=== PATIENT | female | born 1965 | race Caucasian/White ===

== ENCOUNTER 2016-08-24 12:11 | Emergency (ER) | payer MEDICAID, OTHER ==
--- NOTE | 2016-08-24 14:42 | ERNOTE ---
Lower Extremity HPI - Narrative Date of Service: 08/24/16 - General Lower Extremities Pain: knee: right - no gross abnormality noted, ankle: right - no gross abnormality noted Time Seen by Provider: 08/24/16 14:01 Source: patient Exam Limitations: no limitations - Immun/Allergies/Home Medications Immunizations: IMMUNIZATION HX Immunizations Up to Date Yes History of Influenza Vaccine No Hx Pneumococcal Vaccination No Allergies/Adverse Reactions: Allergies Allergy/AdvReac Type Severity Reaction Status Date / Time formaldehyde Allergy Mild Hives Verified 08/24/16 12:59 codeine [Codeine] AdvReac Mild Headache Verified 08/24/16 12:59 lamotrigine AdvReac Mild rash Verified 08/24/16 12:59 nabumetone AdvReac Mild Headache Verified 08/24/16 12:59 prochlorperazine edisylate AdvReac Mild lock jaw Verified 08/24/16 12:59 [From Compazine] prochlorperazine maleate AdvReac Mild lock jaw Verified 08/24/16 12:59 [From Compazine] Home Medications: HOME MEDICATIONS Venlafaxine HCl 75 mg PO HS PRN 03/29/14 [Last Taken Unknown] metFORMIN HCL [Glucophage] 1,000 mg PO BIDWM 03/29/14 [Last Taken Unknown] Aspirin [Aspirin Enteric Coated] 325 mg PO DAILY 05/04/14 [Last Taken Unknown] ALPRAZolam [Xanax] 0.25 mg PO TID PRN 10/09/14 [Last Taken Unknown] traMADol HCL [Ultram] 50 mg PO DAILY 01/01/15 [Last Taken Unknown] Gabapentin [Neurontin] 300 mg PO HS 01/06/16 [Last Taken Unknown] Blood Sugar Diagnostic, Chely [Accu-Chek Compact] 1 each MC BID 01/22/16 [Last Taken Unknown] Naproxen [Naprosyn] 500 mg PO BID PRN #20 tablet 05/02/16 [Last Taken Unknown] Escitalopram Oxalate [Lexapro] 10 mg PO DAILY 06/02/16 [Last Taken Unknown] predniSONE [Prednisone] 2 tab PO DAILY 06/02/16 [Last Taken Unknown] - History of Present Illness Narrative: This is a 51 year old female with a history of right knee surgery due to torn meniscus and pak's cyst [place] [address] Enriquez. Patient states she has appointment Thursday with him. Patient states she began to experience right knee and right ankle pain beginning last week which has been getting progressively worse. Denies trauma/fall/injury yet states she noticed the pain and it has been getting progressively worse. States pain is constant and she can still ambulate. No obvious trauma or injury noted Date (Duration): 08/18/16 Occurred: last week Location of Incident: other - no actual injury just progression of pain Method of Injury: Reports: other - denies injury or trauma, denies fall Reason for Fall: Reports: other - did not fall Loss of Consciousness: Reports: no loss of consciousness Modifying Factors - (Improves): Reports: rest Modifying Factors - (Worsens): Reports: movement Associated Symptoms: Denies: unable to bear weight, snapping, popping sensation , dizzy/light headedness, headache, weakness, sensory loss, chest pain, vomiting /diarrhea, bowel/bladder problems Other Injuries: Reports: none Subsequent Symptoms: Denies: sensory loss, numbness, motor loss, bowel/bladder problem Review of Systems - Review of Systems Constitutional: Present: no symptoms reported. Absent: recent illness, fever, chills, diaphoresis, weakness, fatigue, malaise, weight loss EYE: Present: no symptoms reported ENT: Present: no symptoms reported Respiratory: Present: no symptoms reported. Absent: shortness of breath, cough , orthopnea Cardiology: Present: no symptoms reported. Absent: chest pain, palpitations, syncope Gastrointestinal/Abdominal: Present: no symptoms reported. Absent: nausea, vomiting, diarrhea, abdominal pain Genitourinary: Present: no symptoms reported Musculoskeletal: Present: other - complains of pain right lateral area knee and ankle. Absent: back pain, muscle pain, muscle stiffness Neurological: Present: no symptoms reported - Patient's Past Medical History Patient History - Medical: Anxiety, Diabetes Type 2, Depression, Fibromyalgia, GERD Patient History - Cardiac/Respiratory: No pertinent hx Patient History - Cancer: No Hx of Cancer Patient History - Surgical Procedures: Appendectomy, Cholecystectomy, Hysterectomy, T & A - Family History Mother Family History - Medical: Diabetes Type 2 Family History - Cardiac/Respiratory: Coronary Heart Disease, Myocardial Infarction Father Family History - Medical: Diabetes Type 2 Family History - Cardiac/Respiratory: Coronary Heart Disease, CHF, COPD Brother Family History - Medical: History Unknown, Diabetes Type 2 Family History - Cardiac/Respiratory: History Unknown Sister Family History - Medical: History Unknown Family History - Cardiac/Respiratory: History Unknown - Social History Living Situations: alone Does anyone smoke in the home?: No Smoking Status: Never smoker Alcohol Use: occasionally Drug Use: none Physical Exam - Physical Exam General Appearance: Present: wd/wn, alert, no apparent distress, cheerful Eye Exam: Normal inspection: bilateral Ears, Nose, Throat: Present: hearing grossly normal. Absent: dry mucous membranes Neck: Present: normal inspection Respiratory: Present: no respiratory distress, normal breath sounds, no accessory muscle use, chest nontender, lungs clear. Absent: chest tenderness, respiratory distress, accessory muscle use Cardiovascular/Chest: Present: regular rate, rhythm, no murmur, normal peripheral pulses Peripheral Pulses: N=norm/S=strong/W=weak/B=bound/A=absent: Radial (R): Strong, Radial (L): Strong, Dorsalis-pedis (R): Strong, Dorsalis-pedis (L): Strong Gastrointestinal/Abdominal: Present: normal bowel sounds, nontender, nondistended, soft Extremity Exam: Present: normal inspection, no edema, normal range of motion Neurological Exam: Present: alert, oriented, normal mood/affect, no motor/ sensory deficits Skin Exam: Present: normal color, warm/dry ED Progress - Vital Signs Patient's Vital Signs:: I have reviewed the patient's vital signs. Vital Signs: Vital Signs 08/24/16 12:54 Temperature 36.3 C L Pulse Rate 101 H Respiratory 16 Rate Blood Pressure 103/80 O2 Sat by Pulse 96 Oximetry - X-Ray X-Ray #1 X-Ray: knee Interpretation: Reviewed by me X-ray Comments: Findings: Normal bony mineralizations and alignment. No fracture or dislocation. No productive or erosive changes are seen. No lytic or blastic changes. No soft tissue abnormality. IMPRESSION: NO ACUTE OSSEOUS ABNORMALITY Electronically signed by Enoc Carranza M.D.. - Progress/Reassessment Chief Complaint: Lower Extremity Pain/ Injury Progress:: Repeat exam at discharge Progress Note-Subjective: 08/24/16 15:23 patient agrees to muna wrapping both knee and ankle Departure Clinical Impression: Knee pain, acute Qualifiers: Laterality: right Qualified Code(s): M25.561 - Pain in right knee Ankle pain, right Qualifiers: Chronicity: acute Qualified Code(s): M25.571 - Pain in right ankle and joints of right foot - Departure Disposition: Home Follow Up Needed Condition: Good Instructions: Knee Pain, [id number], Ankle Sprain, RICE for Routine Care of Injuries, [id number] Additional Instructions: Keep appointment with Dr Ospina's on Thursday. Keep muna wrap on to help decrease movement and reduce pain. Elevate, rest and ice right knee and ankle Referrals: Jhon Martinez DO [Primary Care Provider] - Gianni Enriquez MD [Staff Physician] -
[2016-08-24 15:34] VITALS: BP 110/68
== END 2016-08-24 15:35 | disposition home or self-care (01) ==
LOC: ER 12:11
DX: M25.561 Pain in right knee (principal); M25.571 Pain in right ankle and joints of right foot

== ENCOUNTER 2016-09-14 17:04 | Emergency (ER) | payer MEDICAID ==
--- NOTE | 2016-09-14 17:46 | ERNOTE ---
Medical Problem HPI - Narrative Date of Service: 09/14/16 - General Chief Complaint: General Assessment Time Seen by Provider: 09/14/16 17:29 Source: patient Exam Limitations: no limitations - Immun/Allergies/Home Medications Immunizations: IMMUNIZATION HX Immunizations Up to Date Yes History of Influenza Vaccine Yes Hx Pneumococcal Vaccination No Allergies/Adverse Reactions: Allergies formaldehyde Allergy (Mild, Verified 08/24/16 12:59) Hives codeine [Codeine] Adverse Reaction (Mild, Verified 08/24/16 12:59) Headache lamotrigine Adverse Reaction (Mild, Verified 08/24/16 12:59) rash nabumetone Adverse Reaction (Mild, Verified 08/24/16 12:59) Headache prochlorperazine edisylate [From Compazine] Adverse Reaction (Mild, Verified 12:59) lock jaw prochlorperazine maleate [From Compazine] Adverse Reaction (Mild, Verified 08/24 12:59) lock jaw Home Medications: HOME MEDICATIONS Venlafaxine HCl 75 mg PO HS PRN 03/29/14 [Last Taken Unknown] metFORMIN HCL [Glucophage] 1,000 mg PO BIDWM 03/29/14 [Last Taken Unknown] Aspirin [Aspirin Enteric Coated] 325 mg PO DAILY 05/04/14 [Last Taken Unknown] ALPRAZolam [Xanax] 0.25 mg PO TID PRN 10/09/14 [Last Taken Unknown] traMADol HCL [Ultram] 50 mg PO DAILY 01/01/15 [Last Taken Unknown] Gabapentin [Neurontin] 300 mg PO HS 01/06/16 [Last Taken Unknown] Blood Sugar Diagnostic, Drum [Accu-Chek Compact] 1 each MC BID 01/22/16 [Last Taken Unknown] Naproxen [Naprosyn] 500 mg PO BID PRN #20 tablet 05/02/16 [Last Taken Unknown] Escitalopram Oxalate [Lexapro] 10 mg PO DAILY 06/02/16 [Last Taken Unknown] Hydrocortisone [Hydrocortisone 2.5% Cream] 1 appl TP BID PRN #120 gm 09/14/16 [ Last Taken Unknown] Hydrophilic Ointment [Aquaphilic Ointment] 1 appl TP HS #1 jar 09/14/16 [Last Taken Unknown] - History of Present History Narrative: Sensitive skin for many years. Hands especially cracked and itchy in the last year. Timing: getting worse Severity: mild, moderate Modifying Factors - (Improves): Present: other - nothing Modifying Factors - (Worsens): Present: other - anything irritating. Review of Systems - Review of Systems Constitutional: Present: no symptoms reported EYE: Present: no symptoms reported ENT: Present: no symptoms reported Respiratory: Present: no symptoms reported Cardiology: Present: no symptoms reported Gastrointestinal/Abdominal: Present: no symptoms reported Genitourinary: Present: no symptoms reported Musculoskeletal: Present: no symptoms reported Skin: Present: See HPI Neurological: Present: no symptoms reported Endocrine: Present: no symptoms reported Hematologic/Lymphatic: Present: no symptoms reported Psych: Present: no symptoms reported All Other Systems: All systems neg except as marked - Patient's Past Medical History Patient History - Medical: Anxiety, Diabetes Type 2, Depression, Fibromyalgia, GERD Patient History - Cardiac/Respiratory: No pertinent hx Patient History - Cancer: No Hx of Cancer Patient History - Surgical Procedures: Appendectomy, Cholecystectomy, Hysterectomy, T & A Patient History - Other: None - Family History Mother Family History - Medical: Diabetes Type 2 Family History - Cardiac/Respiratory: Coronary Heart Disease, Myocardial Infarction Father Family History - Medical: Diabetes Type 2 Family History - Cardiac/Respiratory: Coronary Heart Disease, CHF, COPD Brother Family History - Medical: History Unknown, Diabetes Type 2 Family History - Cardiac/Respiratory: History Unknown Sister Family History - Medical: History Unknown Family History - Cardiac/Respiratory: History Unknown - Social History Living Situations: alone Abuse History: No History of abuse Psych History: No pertinent hx Does anyone smoke in the home?: No Smoking Status: Never smoker Alcohol Use: occasionally Drug Use: none - Immunizations Immunizations Up to Date: Yes Hx Pneumococcal Vaccination: No History of Influenza Vaccine: Yes Physical Exam - Physical Exam General Appearance: Present: wd/wn, alert, no apparent distress Eye Exam: Normal inspection: bilateral, PERRL: bilateral, EOMI: bilateral Ears, Nose, Throat: Present: normal ENT inspection, hearing grossly normal Neck: Present: normal inspection Respiratory: Present: no respiratory distress Cardiovascular/Chest: Present: regular rate, rhythm Extremity Exam: Present: other - skin on hands mildly dry and cracked Neurological Exam: Present: alert, oriented, normal mood/affect Skin Exam: Present: normal color, warm/dry Lymphatic Exam: Present: no adenopathy ED Progress - Vital Signs Patient's Vital Signs:: I have reviewed the patient's vital signs. Vital Signs: Vital Signs 09/14/16 17:13 Temperature 36.3 C L Pulse Rate 90 Respiratory 14 Rate Blood Pressure 136/82 O2 Sat by Pulse 98 Oximetry - Progress/Reassessment Chief Complaint: General Assessment Departure - Departure Clinical Impression: Eczema Qualifiers: Eczema type: intrinsic Qualified Code(s): L20.84 - Intrinsic (allergic) eczema Disposition: Home self-care Condition: Good Instructions: Eczema Additional Instructions: Followup in the office in the next month or so. Use only Dove soap to wash your hands. Whenever possible, use waterproof gloves when your hands have to be in water. Every night, put a thick layer of Aquaphilic ointment on both hands, then put on white cotton gloves, which you will wear all night every night. Use the Hydrocortisone cream twice daily NEEDED for itching. Referrals: Jhon Martinez DO [Primary Care Provider] - Prescriptions: Hydrocortisone [Hydrocortisone 2.5% Cream] 1 appl TP BID PRN #120 gm PRN Reason: itching Hydrophilic Ointment [Aquaphilic Ointment] 1 appl TP HS #1 jar
[2016-09-14 18:53] VITALS: BP 136/85
== END 2016-09-14 17:55 | disposition home or self-care (01) ==
LOC: ER 17:04
DX: L20.84 Intrinsic (allergic) eczema (principal)

== ENCOUNTER 2016-10-11 20:52 | Emergency (ER) | payer MEDICAID ==
[2016-10-11 21:02] VITALS: BP 126/91
--- NOTE | 2016-10-11 21:06 | ERNOTE ---
Lower Extremity HPI - Narrative Date of Service: 10/11/16 - General Lower Extremities Pain: knee: right, ankle: right Time Seen by Provider: 10/11/16 20:58 Source: patient, family Exam Limitations: no limitations - Immun/Allergies/Home Medications Immunizations: IMMUNIZATION HX Immunizations Up to Date Yes History of Influenza Vaccine Yes Hx Pneumococcal Vaccination No Allergies/Adverse Reactions: Allergies Allergy/AdvReac Type Severity Reaction Status Date / Time formaldehyde Allergy Mild Hives Verified 10/11/16 21:02 codeine [Codeine] AdvReac Mild Headache Verified 10/11/16 21:02 lamotrigine AdvReac Mild rash Verified 10/11/16 21:02 nabumetone AdvReac Mild Headache Verified 10/11/16 21:02 prochlorperazine edisylate AdvReac Mild lock jaw Verified 10/11/16 21:02 [From Compazine] prochlorperazine maleate AdvReac Mild lock jaw Verified 10/11/16 21:02 [From Compazine] Home Medications: HOME MEDICATIONS Venlafaxine HCl 75 mg PO HS PRN 03/29/14 [Last Taken Unknown] metFORMIN HCL [Glucophage] 1,000 mg PO BIDWM 03/29/14 [Last Taken Unknown] Aspirin [Aspirin Enteric Coated] 325 mg PO DAILY 05/04/14 [Last Taken Unknown] ALPRAZolam [Xanax] 0.25 mg PO TID PRN 10/09/14 [Last Taken Unknown] traMADol HCL [Ultram] 50 mg PO DAILY 01/01/15 [Last Taken Unknown] Gabapentin [Neurontin] 300 mg PO HS 01/06/16 [Last Taken Unknown] Blood Sugar Diagnostic, Drum [Accu-Chek Compact] 1 each MC BID 01/22/16 [Last Taken Unknown] Naproxen [Naprosyn] 500 mg PO BID PRN #20 tablet 05/02/16 [Last Taken Unknown] Escitalopram Oxalate [Lexapro] 10 mg PO DAILY 06/02/16 [Last Taken Unknown] Hydrocortisone [Hydrocortisone 2.5% Cream] 1 appl TP BID PRN #120 gm 09/14/16 [ Last Taken Unknown] Hydrophilic Ointment [Aquaphilic Ointment] 1 appl TP HS #1 jar 09/14/16 [Last Taken Unknown] oxyCODONE HCL [Oxycontin] 15 mg PO Q6H PRN 10/11/16 [Last Taken 10/11/16 15:00] - History of Present Illness Narrative: PT C/O OF AGGRAVATION OF HER CHRONIC RIGHT KNEE AND ANKLE PROBLEMS. IS FOLLOWED BY ORTHOPEDIST WHOM SHE JUST SAW 2 WEEKS AGO AND HAS APPOINTMENT FOR RECHECK IN A FEW WEEKS BUT SAYS HER KNEE IS STILL BOTHERING HER . WHEN SEEN BY ORTHO SHE ALSO C/O RIGHT ANKLE PROBLEMS THAT HER DR DX'D POSSIBLE "HIGH ANKLE SPRAIN". SHE HAS NO NEW INJURY. SHE SAYS SHE FEELS POPPING IN HER RIGHT KNEE TONIGHT. SHE IS USING CRUTCHES. SHE HAS KNEE BRACE FROM PRIOR RIGHT KNEE PROBLEMS BUT IS NOT USING IT. SHE IS ALREADY ON OXYCODONE AND NAPROXEN. SHE IS WONDERING IF THERE ARE MORE PAIN RELIEVERS SHE COULD USE. Occurred: other - CHRONIC PROBLEM . NO ACUTE INJURY Prior Treament: Reports: recently seen, treated by physician, similar symptoms before Review of Systems - Review of Systems Constitutional: Present: See HPI Respiratory: Present: no symptoms reported Cardiology: Present: no symptoms reported Gastrointestinal/Abdominal: Present: no symptoms reported Genitourinary: Present: no symptoms reported Musculoskeletal: Present: See HPI, joint pain. Absent: joint swelling Skin: Present: no symptoms reported Psych: Present: no symptoms reported All Other Systems: All systems neg except as marked - Patient's Past Medical History Patient History - Medical: Anxiety, Diabetes Type 2, Depression, Fibromyalgia, GERD, Obesity - BMI = 34.5, Other - OSTEOARTHRITS WITH HX OF CHRONIC JOINT PAIN COMPLAINTS. Patient History - Cardiac/Respiratory: No pertinent hx Patient History - Cancer: No Hx of Cancer Patient History - Surgical Procedures: Appendectomy, Cholecystectomy, Hysterectomy, T & A, Orthopedic Patient History - Other: None - Family History Mother Family History - Medical: Diabetes Type 2 Family History - Cardiac/Respiratory: Coronary Heart Disease, Myocardial Infarction Father Family History - Medical: Diabetes Type 2 Family History - Cardiac/Respiratory: Coronary Heart Disease, CHF, COPD Brother Family History - Medical: History Unknown, Diabetes Type 2 Family History - Cardiac/Respiratory: History Unknown Sister Family History - Medical: History Unknown Family History - Cardiac/Respiratory: History Unknown - Social History Living Situations: home Abuse History: No History of abuse Psych History: Hx of Anxiety, Hx of Depression Does anyone smoke in the home?: No Smoking Status: Never smoker Alcohol Use: occasionally Drug Use: none - Immunizations Immunizations Up to Date: Yes Hx Pneumococcal Vaccination: No History of Influenza Vaccine: Yes Physical Exam - Physical Exam General Appearance: Present: wd/wn, alert Peripheral Pulses: N=norm/S=strong/W=weak/B=bound/A=absent: Dorsalis-pedis (R): Normal Extremity Exam: Present: normal inspection, normal range of motion, no edema, bony tenderness - SHE C/O PAIN IN THE RIGHT KNEE JOINT AREA WHICH IS NO WELL LOCALIZED. THE HAS NO SIGN OF ANY RIGHT KNEE OR ANKLE JOINT INSTABILITY. THERE IS NO POPPING OF R. KNEE NOTED ON EXAM . THE R. KNEE , AND L. KNEE, IS NOT SWOLLEN OR RED OR HOT TO TOUCH. NO EFFUSION NOTED. R. ANKLE ALSO WITHOUT SWELLING OR DEFORMITY . NORMAL DORSALIS PEDIS PULSE ON RIGHT WITH NORMAL DISTAL SENSATION AND REFILL. . Absent: calf tenderness, joint redness, joint swelling, extremity edema ED Progress - Vital Signs Vital Signs: Vital Signs 10/11/16 20:55 Temperature 36.6 C Pulse Rate 104 H Respiratory 18 Rate Blood Pressure 126/91 O2 Sat by Pulse 94 Oximetry - Progress/Reassessment Chief Complaint: Lower Extremity Pain/ Injury Departure Clinical Impression: Knee clicking, Osteoarthritis (arthritis due to wear and tear of joints) - Departure Disposition: Home Follow Up Needed Condition: Good Instructions: Knee Pain, Joint Pain, Nmkh-by-Ymav, Osteoarthritis Additional Instructions: CONTINUE FOLLOW UP WITH YOUR ORTHOPEDIST. TRIAL OF 20 MINS OF ICE FOLLOWED BY 20 MINS OF HEAT EVERY 4 HOURS. CONSIDER USE OF PREFORM OR BIO FREEZE TO SORE JOINT. USE YOUR KNEE BRACE WHEN UP AND AROUND. PARTICIPATE IN REGULAR GENTLE ACTIVITY , AVOIDING THINGS THAT AGGRAVATE THE PAIN. CONTINUE YOUR MEDS BEFORE. Referrals: Darron Horta MD [Primary Care Provider] -
--- OUTSIDE RECORDS SUMMARY | 2016-10-11 21:25 | XMS REPORT | Continuity of Care Document ---
:1965 Author Organization [facility] ([facility]) Address [address] [place] [address] Phone [phone] Care Team Providers Name Role Phone Nicolette Lloyd Primary Care Provider [phone] Source Comments This disclosure is being made pursuant to the Care Everywhere program, applicable federal and state laws, and may not contain all informaitonavailable regarding this patient.[facility] ([facility]) Active Allergies and Adverse Reactions Allergen Noted Date Severity Reactions Comments Codeine 03/18/2013 Headache Other Agent 03/18/2013 Urticaria (Hives) Formaldahyde. Prochlorperazine Edisylate 03/18/2013 Dystonic reaction Current Medications Prescription Sig. Disp. Refills Start Date End Date Status metFORMIN 500 mg tablet Take 500 mg by Active mouth 2 times daily with meals. 1/2 tab bid. venlafaxine 150 mg XR Take 150 mg by Active tablet mouth daily. risperiDONE 1 mg tablet Take 1 mg by mouth Active 2 times daily. lamoTRIgine 150 mg Take 150 mg by Active tablet mouth daily. ALPRAZolam 0.25 mg Take 0.25 mg by Active tablet mouth as needed. triamcinolone 0.1 % apply topically 2 454 g 1 06/23/2013 Active ointment times daily. BID x 2 wks then BID on weekends only x 2 wks. Repeat PRN Indications: SKIN RASH predniSONE 10 mg tablet Take 1 Tab by mouth 70 Tab 0 06/23/2013 Active daily. 40 mgx7d,30 mgx7d then [id number] then 10 mgx7d then stop Indications: Skin rash Active Problems Problem Noted Date Contact dermatitis 06/16/2013 Social History Tobacco Use Types Packs/Day Years Used Date Never Smoker Smokeless Tobacco: Never Used Tobacco Cessation:Counseling Given: Yes Comments: Alcohol Use Drinks/Week oz/Week Comments Yes "Occassional." Last Filed Vital Signs Vital Sign Reading Time Taken Blood Pressure 177/87 06/23/2013 2:12 PM HIP HOP ARTIST Pulse 124 06/23/2013 2:12 PM HIP HOP ARTIST Temperature 36.5 C (97.7 F) 06/23/2013 2:12 PM HIP HOP ARTIST Respiratory Rate 20 06/23/2013 2:12 PM HIP HOP ARTIST Height - - Weight 89.359 kg (197 lb) 06/23/2013 2:12 PM HIP HOP ARTIST Body Mass Index - - Oxygen Saturation 98% 06/23/2013 2:12 PM HIP HOP ARTIST Plan of Care Health Maintenance Due Date Last Done Comments HCV Screening 1965 Hepatitis B Vaccine (1 of 3 - Primary Series) 1965 Tdap Vaccine 1975 Lipid Disorder Screening 1982 MMR Vaccine 1982 Td Vaccine 1982 Cervical Cancer Screening 1994 Mammogram 2004 Colonoscopy 2014 Influenza Vaccine: Seasonal (#1) 03/10/2016 Results from Last 3 Months Not on file
== END 2016-10-11 21:32 | disposition home or self-care (01) ==
LOC: ER 20:52
DX: M17.11 Unilateral primary osteoarthritis, right knee (principal); E11.9 Type 2 diabetes mellitus without complications; F41.8 Other specified anxiety disorders; M79.7 Fibromyalgia

== ENCOUNTER 2017-03-30 19:57 | Emergency (ER) | payer MEDICAID ==
[2017-03-30 20:08] VITALS: BP 152/87
--- NOTE | 2017-03-30 20:41 | ERNOTE ---
Upper Extremity HPI - Narrative Date of Service: 03/30/17 - General Extremities Pain Location: elbow: right Time Seen by Provider: 03/30/17 20:11 Source: patient Exam Limitations: no limitations - Immun/Allergies/Home Medications Immunizations: IMMUNIZATION HX Immunizations Up to Date Yes History of Influenza Vaccine Yes Hx Pneumococcal Vaccination No Allergies/Adverse Reactions: Allergies Allergy/AdvReac Type Severity Reaction Status Date / Time formaldehyde Allergy Mild Hives Verified 03/30/17 20:08 codeine [Codeine] AdvReac Mild Headache Verified 03/30/17 20:08 lamotrigine AdvReac Mild rash Verified 03/30/17 20:08 nabumetone AdvReac Mild Headache Verified 03/30/17 20:08 prochlorperazine edisylate AdvReac Mild lock jaw Verified 03/30/17 20:08 [From Compazine] prochlorperazine maleate AdvReac Mild lock jaw Verified 03/30/17 20:08 [From Compazine] Home Medications: HOME MEDICATIONS Venlafaxine HCl 75 mg PO HS PRN 03/29/14 [Last Taken Unknown] metFORMIN HCL [Glucophage] 1,000 mg PO BIDWM 03/29/14 [Last Taken Unknown] Aspirin [Aspirin Enteric Coated] 325 mg PO DAILY 05/04/14 [Last Taken Unknown] ALPRAZolam [Xanax] 0.25 mg PO TID PRN 10/09/14 [Last Taken Unknown] traMADol HCL [Ultram] 50 mg PO DAILY 01/01/15 [Last Taken Unknown] Gabapentin [Neurontin] 300 mg PO HS 01/06/16 [Last Taken Unknown] Blood Sugar Diagnostic, Drum [Accu-Chek Compact] 1 each MC BID 01/22/16 [Last Taken Unknown] Naproxen [Naprosyn] 500 mg PO BID PRN #20 tablet 05/02/16 [Last Taken Unknown] Escitalopram Oxalate [Lexapro] 10 mg PO DAILY 06/02/16 [Last Taken Unknown] Hydrocortisone [Hydrocortisone 2.5% Cream] 1 appl TP BID PRN #120 gm 09/14/16 [ Last Taken Unknown] Hydrophilic Ointment [Aquaphilic Ointment] 1 appl TP HS #1 jar 09/14/16 [Last Taken Unknown] oxyCODONE HCL [Oxycontin] 15 mg PO Q6H PRN 10/11/16 [Last Taken 10/11/16 15:00] - History of Present Illness Narrative: Pt. comes in with c/o R hand swelling since 4 pm this afternoon. Pt. has a hx of recent elbow ganglion cyst removal three days ago. Pt. denies any increased pain redness or warmth of the hand. Pt. states that she did rewrap the dressing today because it came loose when she was doing laundry. Pt. denies any fever, SOB, CP, NVD, alleviaitng factors or aggravating factors. Review of Systems - Review of Systems Constitutional: Present: no symptoms reported. Absent: recent illness, fever, chills, weakness, fatigue, malaise EYE: Present: no symptoms reported ENT: Present: no symptoms reported Respiratory: Present: no symptoms reported. Absent: shortness of breath, cough , wheezing Cardiology: Present: no symptoms reported. Absent: chest pain, palpitations, edema Gastrointestinal/Abdominal: Present: no symptoms reported. Absent: nausea, vomiting, diarrhea Genitourinary: Present: no symptoms reported. Absent: See HPI, frequency, decreased urinary output Musculoskeletal: Present: joint swelling - R hand Skin: Present: no symptoms reported. Absent: rash, lesions, change in color, change in hair/nails Neurological: Present: no symptoms reported. Absent: headache, dizziness/light- headedness, numbness, tingling All Other Systems: All systems neg except as marked - Patient's Past Medical History Patient History - Medical: Anxiety, Diabetes Type 2, Depression, Fibromyalgia, GERD, Obesity, Other Patient History - Cardiac/Respiratory: No pertinent hx Patient History - Cancer: No Hx of Cancer Patient History - Surgical Procedures: Appendectomy, Cholecystectomy, Hysterectomy, T & A, Orthopedic Patient History - Other: None - Family History Mother Family History - Medical: Diabetes Type 2 Family History - Cardiac/Respiratory: Coronary Heart Disease, Myocardial Infarction Father Family History - Medical: Diabetes Type 2 Family History - Cardiac/Respiratory: Coronary Heart Disease, CHF, COPD Brother Family History - Medical: History Unknown, Diabetes Type 2 Family History - Cardiac/Respiratory: History Unknown Sister Family History - Medical: History Unknown Family History - Cardiac/Respiratory: History Unknown - Social History Living Situations: home Abuse History: No History of abuse Psych History: Hx of Anxiety, Hx of Depression Does anyone smoke in the home?: No Smoking Status: Never smoker Alcohol Use: occasionally Drug Use: none - Immunizations Immunizations Up to Date: Yes Hx Pneumococcal Vaccination: No History of Influenza Vaccine: Yes Physical Exam - Physical Exam General Appearance: Present: wd/wn, alert, no apparent distress Head Exam: Present: normal inspection, no evidence of injury Eye Exam: Normal inspection: bilateral Respiratory: Present: no respiratory distress, normal breath sounds, no accessory muscle use, chest nontender, lungs clear Cardiovascular/Chest: Present: regular rate, rhythm, no murmur, normal peripheral pulses Back Exam: Present: normal inspection Extremity Exam: Present: other - mild edema forearm to fingers distal to muna wrap Neurological Exam: Present: alert, oriented, normal mood/affect, no motor/ sensory deficits Skin Exam: Present: normal color, warm/dry. Absent: pallor, skin rash ED Progress - Date and Time Seen: Date and Time: 03/30/17 20:22 Since extremity has a lack of redness, significant swelling, warmth, surgical site complications, or fever feel that pt. edema is from the muna wrap that is creating a tourniquet around her arm as pt. rewrapped her dressing this afternoon and it is bunv=ched up on her forearm and tight. Will rewrap with iodoform soft roll and muna wrap and have pt. follow up as planned. - Vital Signs Patient's Vital Signs:: I have reviewed the patient's vital signs. Vital Signs: Vital Signs 03/30/17 20:03 Temperature 36.8 C Pulse Rate 90 Respiratory 16 Rate Blood Pressure 152/87 O2 Sat by Pulse 95 Oximetry - Progress/Reassessment Chief Complaint: Upper Extremity Injury/Problem Departure Clinical Impression: Encounter for change or removal of surgical wound dressing Edema Qualifiers: Edema type: localized Qualified Code(s): R60.0 - Localized edema - Departure Disposition: Home self-care Condition: Good Instructions: RICE for Routine Care of Injuries, [id number] Additional Instructions: Pleas follow up with ortopedic surgeon on Thursday as planned. Referrals: Darron Horta MD [Primary Care Provider] -
== END 2017-03-30 20:25 | disposition home or self-care (01) ==
LOC: ER 19:57
DX: R60.0 Localized edema (principal); Z48.00 Encounter for change or removal of nonsurgical wound dressing; F41.8 Other specified anxiety disorders; E11.9 Type 2 diabetes mellitus without complications; M79.7 Fibromyalgia; K21.9 Gastro-esophageal reflux disease without esophagitis

== ENCOUNTER 2017-06-18 01:16 | Emergency (ER) | payer MEDICAID ==
[2017-06-18 01:25] VITALS: BP 173/95
[2017-06-18] MEDS ORDERED: NORMAL SALINE 1,000 ML IV ONE (01:35)
--- NOTE | 2017-06-18 02:25 | ERNOTE ---
Medical Problem HPI - General Chief Complaint: Diabetes Related Problem Time Seen by Provider: 06/18/17 01:30 Source: patient Exam Limitations: no limitations - Immun/Allergies/Home Medications Immunizations: IMMUNIZATION HX Immunizations Up to Date Yes History of Influenza Vaccine Yes Hx Pneumococcal Vaccination No Allergies/Adverse Reactions: Allergies formaldehyde Allergy (Mild, Verified 03/30/17 20:08) Hives codeine [Codeine] Adverse Reaction (Mild, Verified 03/30/17 20:08) Headache lamotrigine Adverse Reaction (Mild, Verified 03/30/17 20:08) rash nabumetone Adverse Reaction (Mild, Verified 03/30/17 20:08) Headache prochlorperazine edisylate [From Compazine] Adverse Reaction (Mild, Verified 20:08) lock jaw prochlorperazine maleate [From Compazine] Adverse Reaction (Mild, Verified 03/30 20:08) lock jaw Home Medications: HOME MEDICATIONS Venlafaxine HCl 75 mg PO HS PRN 03/29/14 [Last Taken Unknown] metFORMIN HCL [Glucophage] 1,000 mg PO BIDWM 03/29/14 [Last Taken Unknown] traMADol HCL [Ultram] 50 mg PO DAILY 01/01/15 [Last Taken Unknown] Gabapentin [Neurontin] 300 mg PO HS 01/06/16 [Last Taken Unknown] Blood Sugar Diagnostic, Drum [Accu-Chek Compact] 1 each MC BID 01/22/16 [Last Taken Unknown] Naproxen [Naprosyn] 500 mg PO BID PRN #20 tablet 05/02/16 [Last Taken Unknown] Escitalopram Oxalate [Lexapro] 10 mg PO DAILY 06/02/16 [Last Taken Unknown] Hydrocortisone [Hydrocortisone 2.5% Cream] 1 appl TP BID PRN #120 gm 09/14/16 [ Last Taken Unknown] Hydrophilic Ointment [Aquaphilic Ointment] 1 appl TP HS #1 jar 09/14/16 [Last Taken Unknown] oxyCODONE HCL [Oxycontin] 15 mg PO Q6H PRN 10/11/16 [Last Taken 10/11/16 15:00] Alprazolam [Xanax Xr] 0.5 mg PO TID PRN 06/18/17 [Last Taken Unknown] Calcium Carbonate [Calcium] 1,250 mg PO DAILY 06/18/17 [Last Taken Unknown] Dexlansoprazole [Dexilant] 60 mg PO DAILY 06/18/17 [Last Taken Unknown] Glimepiride 8 mg PO DAILY 06/18/17 [Last Taken Unknown] Pioglitazone HCl [Actos] 45 mg PO DAILY 06/18/17 [Last Taken Unknown] sitaGLIPtin PHOSPHATE [Januvia] 100 mg PO DAILY 06/18/17 [Last Taken Unknown] traZODone HCL [Trazodone HCl] 50 mg PO HS 06/18/17 [Last Taken Unknown] - History of Present History Narrative: Pt states she was out shopping and had a low blood sugar, she ate a candybar and it came up only a little. She went home and ate ice cream and she still did not feel well so she came to the ED. fingerstick glucose on presentation 101. Timing: constant Severity: moderate - initially Modifying Factors - (Improves): Present: eating Review of Systems - Review of Systems Constitutional: Present: recent illness - "bad cold" EYE: Present: no symptoms reported ENT: Present: nose congestion, nasal drainage Respiratory: Present: cough Cardiology: Absent: chest pain Gastrointestinal/Abdominal: Present: no symptoms reported Genitourinary: Present: no symptoms reported Musculoskeletal: Present: no symptoms reported Skin: Present: no symptoms reported Neurological: Present: weakness Endocrine: Present: excessive sweating, flushing Hematologic/Lymphatic: Present: no symptoms reported Psych: Present: no symptoms reported - Patient's Past Medical History Patient History - Medical: Anxiety, Diabetes Type 2, Depression, Fibromyalgia, GERD, Obesity, Other Patient History - Cardiac/Respiratory: No pertinent hx Patient History - Cancer: No Hx of Cancer Patient History - Surgical Procedures: Appendectomy, Cholecystectomy, Hysterectomy, T & A, Orthopedic Patient History - Other: None LMP (females 10-50): hysterectomy - Family History Mother Family History - Medical: Diabetes Type 2 Family History - Cardiac/Respiratory: Coronary Heart Disease, Myocardial Infarction Father Family History - Medical: Diabetes Type 2 Family History - Cardiac/Respiratory: Coronary Heart Disease, CHF, COPD Brother Family History - Medical: History Unknown, Diabetes Type 2 Family History - Cardiac/Respiratory: History Unknown Sister Family History - Medical: History Unknown Family History - Cardiac/Respiratory: History Unknown - Social History Living Situations: significant other Abuse History: No History of abuse Psych History: Hx of Anxiety, Hx of Depression Smoking Status: Never smoker Have you smoked in the past 12 months: No Do you dip or chew tobacco: No Alcohol Use: occasionally Drug Use: none - Immunizations Immunizations Up to Date: Yes Hx Pneumococcal Vaccination: No History of Influenza Vaccine: Yes Physical Exam - Physical Exam General Appearance: Present: wd/wn, alert, mild distress, irritable Head Exam: Present: normal inspection, no evidence of injury Eye Exam: Normal inspection: bilateral, PERRL: bilateral, EOMI: bilateral Ears, Nose, Throat: Present: normal ENT inspection, normal pharynx Neck: Present: normal inspection, nontender, supple Respiratory: Present: no respiratory distress, normal breath sounds, lungs clear Cardiovascular/Chest: Present: regular rate, rhythm, no murmur Back Exam: Present: normal inspection, no vertebral tenderness Extremity Exam: Present: normal inspection, normal range of motion Neurological Exam: Present: alert, oriented, no motor/sensory deficits Skin Exam: Present: normal color, warm/dry Lymphatic Exam: Present: no adenopathy ED Progress - Vital Signs Vital Signs: Vital Signs 06/18/17 01:19 Temperature 36.1 C L Pulse Rate 92 Respiratory 16 Rate Blood Pressure 173/95 O2 Sat by Pulse 100 Oximetry - Progress/Reassessment Chief Complaint: Diabetes Related Problem Departure Clinical Impression: Hypoglycemia associated with diabetes - Departure Disposition: Against medical advice Condition: Good Referrals: Darron Horta MD [Primary Care Provider] -
== END 2017-06-18 02:00 | disposition left against medical advice (07) ==
LOC: ER 01:16
DX: E11.649 Type 2 diabetes mellitus with hypoglycemia without coma (principal); Z53.29 Procedure and treatment not carried out because of patient's decision for other reasons; F41.9 Anxiety disorder, unspecified; F32.9 Major depressive disorder, single episode, unspecified